=== PATIENT | female | born 1960 | race Caucasian/White ===

== ENCOUNTER 2024-08-19 12:45 | Emergency (ER) | payer BC ==
--- NOTE | 2024-08-19 15:50 | ER ---
Nurse's Notes [facility] Name: Audrey Juárez Age: 64 yrs Sex: Female : 1960 Arrival Date: 08/19/2024 Time: 12:45 Bed 12 Private MD: Diagnosis: Strain of muscle(s) and tendon(s) of the rotator cuff of right shoulder Presentation: 08/19 13:02 Chief complaint: Patient states: fell a couple weeks ago, shoe caught on concrete,she iw twisted and landed on her palms, now she is hurting in right shoulder, cannot lief the arm above her head, my left hip hurts when I twist, pain radiates to lower back. 13:02 Acuity: INDIGO 4 iw 13:03 Coronavirus screen: At this time, the client does not indicate any symptoms associated iw with coronavirus-19. Ebola Screen: No symptoms or risks identified at this time. Initial Sepsis Screen: Does the patient meet any 2 criteria? No. Patient's initial sepsis screen is negative. Does the patient have a suspected source of infection? No. Patient's initial sepsis screen is negative. Risk Assessment: Do you want to hurt yourself or someone else? Patient reports no desire to harm self or others. Onset of symptoms was August 05, 2024. 13:03 Method Of Arrival: Ambulatory iw Historical: - Allergies: 13:04 Codeine; iw - Home Meds: 13:04 None [Active]; iw - PMHx: 13:04 None; iw - PSHx: 13:04 partial hysterectomy; discectomy; iw - Immunization history:: Adult Immunizations. - Infectious Disease History:: Denies. - Social history:: Smoking status: Patient denies any tobacco usage or history of. Screenin:12 [facility] ED Fall Risk Assessment (Adult) History of falling in the last 3 months, ph including since admission Yes- single mechanical fall (1 pt) Confusion or Disorientation No (0 pts) Intoxicated or Sedated No (0 pts) Impaired Gait No (0 pts) Mobility Assist Device Used No (0 pt) Altered Elimination No (0 pt) Score/Fall Risk Level 0 - 2 = Low Risk Oriented to surroundings, Maintained a safe environment, Hourly rounding (assess needs \T\ fall precautionary measures) done. Abuse screen: Denies threats or abuse. Denies injuries from another. Nutritional screening: No deficits noted. Tuberculosis screening: No symptoms or risk factors identified. Assessment: 15:17 Reassessment: No changes from previously documented assessment. Patient and/or family ll1 updated on plan of care and expected duration. Pain level reassessed. Patient is alert, oriented x 3, equal unlabored respirations, skin warm/dry/pink. 16:00 General: Appears in no apparent distress. comfortable, slender, well groomed, Behavior ph is calm, cooperative, appropriate for age. Pain: Complains of pain in R shoulder, L hip. Neuro: Level of Consciousness is awake, alert, obeys commands, Oriented to person, place, time, situation. Cardiovascular: Capillary refill < 3 seconds in bilateral fingers Patient's skin is warm and dry. Respiratory: Airway is patent Respiratory effort is even, unlabored. Derm: Skin is pink, warm \T\ dry. Musculoskeletal: Circulation, motion, and sensation intact. Range of motion: intact in all extremities. Vital Signs: 13:03 BP 134 / 110; Pulse 98; Resp 19; Temp 97.5; Pulse Ox 100% on R/A; Weight 69.4 kg; iw Height 5 ft. 5 in. ; 13:03 Body Mass Index 25.46 (69.40 kg, 165.1 cm) iw ED Course: 12:55 Patient arrived in ED. cj3 13:02 Gia Naik MD is Attending Physician. gb1 13:03 Triage completed. iw 13:05 Arm band placed on. iw 15:17 Patient placed in an exam room, on a stretcher. ll1 15:30 Patient has correct armband on for positive identification. Bed in low position. Call ph light in reach. Pulse ox on. NIBP on. Door closed. Noise minimized. 15:41 Deya Mejias, RN is Primary Nurse. ph 16:13 No provider procedures requiring assistance completed. Patient did not have IV access ph during this emergency room visit. Administered Medications: No medications were administered Medication: 16:13 VIS not applicable for this client. ph Outcome: 15:50 Discharge ordered by . gb1 16:13 Discharged to home ambulatory, ph 16:13 Condition: good 16:13 Discharge instructions given to patient, Instructed on discharge instructions, follow up and referral plans. medication usage, Demonstrated understanding of instructions, follow-up care, medications, Prescriptions given X 1, 16:14 Patient left the ED. ph Signatures: Payton Vargas RN RN Deya Mejias RN RN ph Lewis, Lynsay, RN RN ll1 Gia Naik MD MD gb1 Shobha Cuevas cj3
--- NOTE | 2024-08-19 15:50 | EDPHYS ---
Physician Documentation [facility] Name: Audrey Juárez Age: 64 yrs Sex: Female : 1960 Arrival Date: 08/19/2024 Time: 12:45 Bed 12 Private MD: ED Physician Gia Naik HPI: 08/19 16:02 This 64 yrs old Female presents to ER via Ambulatory with complaints of Fall gb1 Injury, RT Arm Injury, Hip Pain. 16:02 64-year-old female fell 2 weeks ago was fine for a week and then started having pain in gb1 her right shoulder and left hip. Patient denies any falls since the initial fall 2 weeks ago. She has been using ibuprofen for pain but when she wakes up in the morning it is hard for her to get comfortable and range the right shoulder without pain.. Historical: - Allergies: 13:04 Codeine; iw - Home Meds: 13:04 None [Active]; iw - PMHx: 13:04 None; iw - PSHx: 13:04 partial hysterectomy; discectomy; iw - Immunization history:: Adult Immunizations. - Infectious Disease History:: Denies. - Social history:: Smoking status: Patient denies any tobacco usage or history of. Exam: 16:02 Constitutional: This is a well developed, well nourished patient who is awake, alert, gb1 and in no acute distress. Head/Face: Normocephalic, atraumatic. Eyes: Pupils equal round and reactive to light, extra-ocular motions intact. Lids and lashes normal. Conjunctiva and sclera are non-icteric and not injected. Cornea within normal limits. Periorbital areas with no swelling, redness, or edema. ENT: Nares patent. No nasal discharge, no septal abnormalities noted. Tympanic membranes are normal and external auditory canals are clear. Oropharynx with no redness, swelling, or masses, exudates, or evidence of obstruction, uvula midline. Mucous membranes moist. Neck: Trachea midline, no thyromegaly or masses palpated, and no cervical lymphadenopathy. Supple, full range of motion without nuchal rigidity, or vertebral point tenderness. No Meningismus. Chest/axilla: Normal chest wall appearance and motion. Nontender with no deformity. No lesions are appreciated. Cardiovascular: Regular rate and rhythm with a normal S1 and S2. No gallops, murmurs, or rubs. Normal PMI, no JVD. No pulse deficits. Respiratory: Lungs have equal breath sounds bilaterally, clear to auscultation and percussion. No rales, rhonchi or wheezes noted. No increased work of breathing, no retractions or nasal flaring. Abdomen/GI: Soft, non-tender, with normal bowel sounds. No distension or tympany. No guarding or rebound. No evidence of tenderness throughout. Skin: Warm, dry with normal turgor. Normal color with no rashes, no lesions, and no evidence of cellulitis. MS/ Extremity: Pulses equal, no cyanosis. Neurovascular intact. Slightly painful active range of motion of the right shoulder joint. She is able to scratch her back at this time. No obvious deformity. Vital Signs: 13:03 BP 134 / 110; Pulse 98; Resp 19; Temp 97.5; Pulse Ox 100% on R/A; Weight 69.4 kg; iw Height 5 ft. 5 in. ; 13:03 Body Mass Index 25.46 (69.40 kg, 165.1 cm) iw MDM: 14:43 Medical Screening Exam initiated gb1 16:02 Data reviewed: vital signs, nurses notes. ED course: 64-year-old female with a gb1 traumatic fall concern for partial rotator cuff tear traumatic on the right shoulder and concern for possibly a lumbar contusion she has no signs of radiculopathy but is tender to the touch paraspinal over the left posterior pelvic rim.. ED course: Patient needs an outpatient MRI of the lumbar spine as well as the right shoulder without contrast. From there she can decide with her primary care whether she needs referral to orthopedic surgery. I recommend NSAIDs for pain. Patient is compliant with his plan of care for discharge and has explicit return precautions which she is compliant with prior to leaving the ER today.. Administered Medications: No medications were administered Disposition Summary: 08/19/24 15:50 Discharge Ordered Notes: Location: Home gb1 Problem: new gb1 Symptoms: are unchanged gb1 Condition: Stable gb1 Diagnosis - Strain of muscle(s) and tendon(s) of the rotator cuff of right shoulder gb1 Followup: gb1 - With: Private Physician - When: - Reason: Further diagnostic work-up Discharge Instructions: - Discharge Summary Sheet gb1 - Rotator Cuff Tear gb1 - Lumbar Sprain gb1 Forms: - Medication Reconciliation Form gb1 - Antibiotic Education gb1 - Prescription Opioid Use gb1 - Patient Portal Instructions gb1 - Leadership Thank You Letter gb1 Prescriptions: - Ibuprofen 800 mg Oral Tablet - take 1 tablet ORAL route every 8 hours As needed take with food; 30 tablet; gb1 Refills: 0, Product Selection Permitted Signatures: Payton Vargas RN RN iw Gia Naik MD MD gb1
[2024-08-19 16:53] VITALS: BP 134/110; TEMP 97.5; O2SAT 100
== END 2024-08-19 16:14 | disposition home or self-care (01) ==
LOC: ER 12:45
DX: S46.011A Strain of muscle(s) and tendon(s) of the rotator cuff of right shoulder, initial encounter (principal); M25.552 Pain in left hip